=== PATIENT | female | born 1955 | race Caucasian/White ===

== ENCOUNTER 2022-03-04 23:07 | Emergency (ER) | payer OTHER ==
[~2022-03-04] VITALS: Ht 175.3 cm; Wt 76.7 kg
--- NOTE | 2022-03-06 15:59 | EKG ---
[facility] [address] [place] [address] Signed Normal sinus rhythm Low voltage QRS Borderline ECG No previous ECGs available Confirmed by CHINA CERVANTES MD ([id number] on 03/06/2022 3:58:53 PM Electronically Signed By: CHINA CERVANTES MD 03/06/22 1559 PATIENT NAME: YARED VASQUEZ Electrocardiogram DATE OF : 59 PHYSICIAN: CHINA CERVANTES MD REPORT #: [id number] REPORT IS CONFIDENTIAL AND NOT TO BE RELEASED WITHOUT AUTHORIZATION
--- NOTE | 2022-03-07 11:48 | NUR ---
LAB RESULT SENT TO [facility] REQUESTED.
== END 2022-03-05 02:59 | disposition short-term general hospital (02) ==
LOC: ED 23:07
DX: S72.032A Displaced midcervical fracture of left femur, initial encounter for closed fracture (principal); W18.30XA Fall on same level, unspecified, initial encounter
CPT/HCPCS: 36415; 51702; 73502; 80053; 81001; 85025; 85610; 87502; 93005; 93010; 99285-25; C9803; G0480; J2270; J2405; J7121; U0003